=== PATIENT | female | born 1960 | race Caucasian/White ===

== ENCOUNTER → 2020-07-29 10:09 | Outpatient (BNVA) | payer OTHER, SELFPAY | PROVIDERS: Visit Provider Nurse Practitioner | DX: I10 Essential (primary) hypertension (principal); N95.2 Postmenopausal atrophic vaginitis; Z12.39 Encounter for other screening for malignant neoplasm of breast; L08.9 Local infection of the skin and subcutaneous tissue, unspecified; E55.9 Vitamin D deficiency, unspecified | CPT/HCPCS: 80053; 80061; 81000; 82306; 82607; 84443; 85025 ==

== ENCOUNTER 2020-09-23 13:19 | Outpatient (CLI) | payer OTHER, SELFPAY ==
--- NOTE | 2020-09-23 13:30 | MM_ITS ---
WS: [id number] BILATERAL DIGITAL SCREENING MAMMOGRAPHY WITH CAD CLINICAL INFORMATION: Z12.39 - Encounter for other screening for malignant neop... HISTORY: Screening mammogram. No current complaints. COMPARISON: February 23, 2013 outside exam. 2009 and 2010. TECHNIQUE: Bilateral CC and MLO views. FINDINGS: The breasts are composed of heterogeneous fibroglandular density tissue, which can limit the detectio n of small underlying mass lesions. No suspicious mass, asymmetry, calcifications, or architectural d istortion. No evidence of malignancy. MM/[place] [id number] IMPRESSION: BI-RADS: 2-Benign FOLLOW UP: 1 Year Follow-up Recommend return to annual screening mammography.
== END 2020-09-23 13:20 | disposition home or self-care (01) ==
LOC: RADSHAW 13:26
PROVIDERS: PCP Nurse Practitioner; Visit Provider Nurse Practitioner
DX: Z12.31 Encounter for screening mammogram for malignant neoplasm of breast (principal)
CPT/HCPCS: 77067

== ENCOUNTER → 2021-01-17 10:03 | Outpatient (BNVA) | payer OTHER, SELFPAY | PROVIDERS: PCP Nurse Practitioner; Visit Provider Nurse Practitioner | DX: I10 Essential (primary) hypertension (principal) | CPT/HCPCS: 80053; 80061 ==

== ENCOUNTER → 2021-07-13 16:52 | Outpatient (BNVA) | payer OTHER, SELFPAY | PROVIDERS: PCP Nurse Practitioner; Visit Provider Nurse Practitioner | DX: I10 Essential (primary) hypertension (principal) | CPT/HCPCS: 80053; 80061; 84443 ==

== ENCOUNTER → 2021-08-25 10:37 | Outpatient (BNVA) | payer OTHER, SELFPAY | PROVIDERS: PCP Nurse Practitioner; Visit Provider Nurse Practitioner Family | DX: Z20.822 Contact with and (suspected) exposure to COVID-19 (principal) | CPT/HCPCS: 87635 ==

== ENCOUNTER → 2022-02-14 15:49 | Outpatient (BNVA) | payer OTHER, SELFPAY | PROVIDERS: PCP Nurse Practitioner; Visit Provider Nurse Practitioner | DX: I10 Essential (primary) hypertension (principal) | CPT/HCPCS: 80053; 81000 ==

== ENCOUNTER → 2022-02-21 08:47 | Outpatient (BNVA) | payer OTHER, SELFPAY | PROVIDERS: PCP Nurse Practitioner; Visit Provider Nurse Practitioner | DX: R73.09 Other abnormal glucose (principal); R73.9 Hyperglycemia, unspecified | CPT/HCPCS: 80048 ==

== ENCOUNTER 2022-03-10 11:14 | Emergency (ER) | payer OTHER, SELFPAY ==
[2022-03-10 11:24] VITALS: BP 137/85; PULSE 92; RESP 16; TEMP 36.3; O2SAT 99; BMI 29.2
--- NOTE | 2022-03-10 11:49 | XRR_ITS ---
PROCEDURE INFORMATION: Exam: XR Abdomen Exam date and time: 03/10/2022 12:19 PM Age: 61 years old Clinical indication: Abdominal pain. Diarrhea. TECHNIQUE: Imaging protocol: Radiologic exam of the abdomen. Views: Frontal supine view of the abdomen. 1 View. COMPARISON: No relevant prior studies available. FINDINGS: Gastrointestinal tract: Nonobstructive bowel gas pattern. Intraperitoneal space: No gross free intraperitoneal air. Bones/joints: No gross acute fracture. XR/XR KUB portable [id number] IMPRESSION: 1. Nonobstructive bowel gas pattern. 2. Consider CT to further assess if clinically warranted.
[2022-03-10 12:09] LABS: Basophils % 0.5 %; Eosinophils # 0.2 10^3/uL (0.0-0.8); Eosinophils % 2.5 %; Hematocrit 36.4 % (37.0-47.0); Hemoglobin 11.9 g/dL (11.5-15.3); Lymphocytes # 0.8 10^3/uL (0.8-4.8); Lymphocytes % 12.6 %; Mean Corpuscular HGB Conc 32.7 g/dL (30.0-36.0); Mean Corpuscular Hemoglobin 30.3 pg (28.0-34.0); Mean Corpuscular Volume 92.6 fl (81-99); Mean Platelet Volume 9.5 fL (7.4-10.4); Monocytes # 0.5 10^3/uL (0.2-0.9); Monocytes % 8.1 %; Neutrophils # 4.58 10^3/uL (1.8-7.7); Neutrophils % 76.1 %; Nucleated Red Blood Cells % 0 %; Platelet Count 251 10^3/cmm (130-400); Red Blood Count 3.93 10^6/uL (4.1-5.3); Red Cell Distribution Width 12.6 % (12.1-15.1)
[2022-03-10] MEDS: sodium chloride 0.9% 1,000 ML 999 ML IV (12:09)
--- NOTE | 2022-03-10 12:09 | ED_ITS ---
HPI - Nausea/Vomiting/Diarrhea General: Chief complaint: Nausea/Vomiting/Diarrhea Stated complaint: diarrhea x7 days, bloody stools Time Seen by Provider: 03/10/22 11:29 History of Present Illness: 61-year-old female presents with what she says is diarrhea for 7 days and then when she wiped she had just a little bit of blood on the paper. She has not complained any blood in her stool. Patient then also stated that she had been on clindamycin that she finished around February 18 or so that she also had diarrhea while she was on the clindamycin. She denies any abdominal pain she denies any nausea or vomiting. Denies any fevers chills or other systemic complaints. Associated nausea: No Associated symtoms: Reports dizziness; Denies chest pain, headache(s), nausea or palpitations Review of Systems Const: Denies: fever(s) or chills Card: Denies: chest pain or palpitations Resp: Denies: dyspnea or productive cough GI: Reports: diarrhea; Denies: abdominal pain, nausea or vomiting : Denies: flank pain or difficulty voiding Musc: Denies: neck pain or back pain Skin/Breast: Denies: rash Neuro: Reports: dizziness; Denies: headache(s) PFSH ED PFSH: Medical History Atrophic vaginitis Environmental and seasonal allergies Essential (primary) hypertension MVP (mitral valve prolapse) Surgical History History of hysterectomy Left cervix and ovaries Family History Grandmother Diabetes Cancer Great grandmother with breast cancer age 60 Family/Other Cancer Uncle with renal cancer Denies family history of Dementia Anesthesia complication Bleeding disorder Hypertension Stroke Social History Smoking and tobacco status: former smoker Second hand smoke exposure: No Smoking risk assessment/counseling performed?: No Alcohol intake: current Alcohol intake frequency: 0-2 Drinks per Day Desire information about alcohol rehabilitation?: No Counseling given: No Desire information about substance/drug rehabilitation?: No Counseling given: No Adopted: No Caregiver/support person: No Lives independently: Yes Household members: spouse Housing: House Marital status: Number of children: 0 service: No Current occupational status: employed Current occupation: Bank Pets and animals: Yes Current gender identity: Female Physical Exam Const: COMMON NORMALS: no acute distress, patient oriented x3 and alert HENMT: COMMON NORMALS: normocephalic, hearing grossly normal bilaterally and moist oral mucous membranes HEAD & SCALP: normocephalic Resp: COMMON NORMALS: normal respiratory effort, No retractions and No use of accessory muscles Cardio: COMMON NORMALS: regular rate and regular rhythm RATE: regular rate RHYTHM: regular rhythm GI: COMMON NORMALS: Soft to palpation and non-tender PALPATION: Yes Soft to palpation Extremity: COMMON NORMALS: normal to inspection, full ROM and capillary refill normal Neuro: COMMON NORMALS: patient oriented x3, no focal motor deficits and gait normal SENSORIUM/ORIENTATION: Yes alert Course Vital Signs: Vital signs: Vital Signs Temperature 97.4 F L 03/10/22 11:24 Pulse Rate 92 03/10/22 11:24 Respiratory Rate 16 03/10/22 11:24 Blood Pressure 137/85 03/10/22 11:24 Pulse Oximetry 99 03/10/22 11:24 Oxygen Delivery Me thod 03/10/22 11:24 MDM - Nausea/Vomiting/Diarrhea Medical Decision Making Patient with no loose stool while in the ER. Patient's labs were reviewed. Patient with a slight elevation of her CRP otherwise labs showed no significant abnormality. X-ray shows nonobstructive bowel gas pattern pattern. She has no tenderness on exam. Patient with likely a gastroenteritis. CT abdomen is really not indicated with no pain or abnormalities on her lab that are significant. I will start her on Cipro Flagyl and Lomotil since she reports a weeks worth of diarrhea. Patient stable and discharged home Lab Data 03/10/22 12:03 03/10/22 12:03 Radiology Impressions KUB X-Ray 03/10/22 11:49 IMPRESSION: 1. Nonobstructive bowel gas pattern. 2. Consider CT to further assess if clinically warranted. Laboratory Results WBC 6.0 10^3/uL (4.0-10.0) 03/10/22 12:03 RBC 3.93 10^6/uL (4.1-5.3) L 03/10/22 12:03 Hgb 11.9 g/dL (11.5-15.3) 03/10/22 12:03 Hct 36.4 % (37.0-47.0) L 03/10/22 12:03 MCV 92.6 fl (81-99) 03/10/22 12:03 MCH 30.3 pg (28.0-34.0) 03/10/22 12:03 MCHC 32.7 g/dL (30.0-36.0) 03/10/22 12:03 RDW 12.6 % (12.1-15.1) 03/10/22 12:03 Plt Count 251 10^3/cmm (130-400) 03/10/22 12:03 MPV 9.5 fL (7.4-10.4) 03/10/22 12:03 Neut % (Auto) 76.1 % 03/10/22 12:03 Lymph % (Auto) 12.6 % 03/10/22 12:03 Stan[place]aus % (Auto) 8.1 % 03/10/22 12:03 Eos % (Auto) 2.5 % 03/10/22 12:03 Baso % (Auto) 0.5 % 03/10/22 12:03 Neut # (Auto) 4.58 10^3/uL (1.8-7.7) 03/10/22 12:03 Lymph # (Auto) 0.8 10^3/uL (0.8-4.8) 03/10/22 12:03 Stan[place]aus # (Auto) 0.5 10^3/uL (0.2-0.9) 03/10/22 12:03 Eos # (Auto) 0.2 10^3/uL (0.0-0.8) 03/10/22 12:03 Baso # (Auto) 0.0 10^3/uL (0.0-0.1) 03/10/22 12:03 Nucleated RBC % (auto) 0 % 03/10/22 12:03 Nucleated RBCs # 0.0 /100WBC 03/10/22 12:03 Sodium 136 mmol/L (136-145) 03/10/22 12:03 Potassium 4.2 mmol/L (3.5-5.1) 03/10/22 12:03 Chloride 99 mmol/L (98-107) 03/10/22 12:03 Carbon Dioxide 25 mmol/L (22-29) 03/10/22 12:03 Anion Gap 16.2 (5-19) 03/10/22 12:03 BUN 8 mg/dL (6-20) 03/10/22 12:03 Creatinine 0.7 mg/dL (0.5-0.9) 03/10/22 12:03 GFR Calculation 85.6 mL/min (90-130) L 03/10/22 12:03 Glucose 102 mg/dL (65-115) 03/10/22 12:03 Calculated Osmolality 281 mOsm/kg (285-295) L 03/10/22 12:03 Calcium 9.4 mg/dL (8.5-10.5) 03/10/22 12:03 Magnesium 1.9 mg/dL (1.7-2.3) 03/10/22 12:03 Total Bilirubin 0.3 mg/dL (0.15-1.2) 03/10/22 12:03 AST 23 U/L (0-32) 03/10/22 12:03 ALT 28 U/L (0-33) 03/10/22 12:03 Alkaline Phosphatase 84 U/L (35-105) 03/10/22 12:03 C-Reactive Protein 27.6 mg/L (0.0-4.9) H 03/10/22 12:03 Total Protein 7.2 g/dL (6.6-8.7) 03/10/22 12:03 Albumin 4.4 g/dL (3.5-5.2) 03/10/22 12:03 Globulin 2.8 g/dL (1.3-4.6) 03/10/22 12:03 Procalcitonin 0.04 ng/mL (0-0.5) 03/10/22 12:03 Influenza Type A Ag negative (Negative) 03/10/22 12:03 Influenza Type B Ag negative (Negative) 03/10/22 12:03 SARS-CoV-2 Ag (Rapid) negative (Negative) 03/10/22 12:03 Discharge Plan Discharge Patient Disposition: Home Clinical Impression: Acute infective gastroenteritis Condition: Stable Prescriptions: New ciprofloxacin HCl [Cipro] 500 mg tablet 500 mg PO BID Qty: 10 0RF metronidazole 500 mg tablet 500 mg PO Q12H Qty: 10 0RF Lomotil 2.5-0.025 mg tablet 1 tab PO Q12H PRN (Reason: diarrhea) Qty: 10 0RF No Action clindamycin HCl 300 mg capsule PO krill oil 500 mg capsule 500 mg PO DAILY omega-3 fatty acids Capsule 1,000 mg PO DAILY amlodipine-benazepril 2.5-10 mg capsule 1 cap PO DAILY Qty: 90 1RF spironolactone 25 mg tablet 25 mg PO BID Qty: 180 1RF Discharge Orders: Discharge ED (Routine); Ordered 03/10/22 Ordered By: Attila Hanson Referrals: Rakesh Torres, SENIOR DEVELOPER-C [Primary Care Provider] - Discharge Diet: Usual diet Discharge Activity: Resume usual activity Patient Instructions: Opioid Safety, Pain Management, Gastroenteritis (ED), Infectious Colitis (ED) Activity Restrictions/Additional Instructions: Please follow-up with your primary care provider in the middle of next week to recheck your symptoms and further outpatient evaluation as needed Coding Level of Care Code ED Line Production Cook for Siri Fwd Exam Detailed
[2022-03-10 12:15] VITALS: BP 126/76; PULSE 80; O2SAT 100
[2022-03-10 12:36] LABS: Alanine Aminotransferase 28 U/L (0-33); Albumin Level 4.4 g/dL (3.5-5.2); Alkaline Phosphatase 84 U/L (35-105); Anion Gap 16.2 (5-19); Aspartate Amino Transferase 23 U/L (0-32); Blood Urea Nitrogen 8 mg/dL (6-20); C Reactive Protein 27.6 mg/L (0.0-4.9); Calcium 9.4 mg/dL (8.5-10.5); Carbon Dioxide 25 mmol/L (22-29); Chloride 99 mmol/L (98-107); Globulin 2.8 g/dL (1.3-4.6); Glomerular Filtration Rate 85.6 mL/min (90-130); Glucose 102 mg/dL (65-115); Magnesium 1.9 mg/dL (1.7-2.3); Osmolality Calculated 281 mOsm/kg (285-295); Potassium 4.2 mmol/L (3.5-5.1); Sodium 136 mmol/L (136-145); Total Bilirubin 0.3 mg/dL (0.15-1.2); Total Protein 7.2 g/dL (6.6-8.7)
[2022-03-10 12:43] LABS: Procalcitonin 0.04 ng/mL (0-0.5)
[2022-03-10 13:28] VITALS: BP 122/72; PULSE 84; RESP 14; O2SAT 96
[2022-03-10 13:38] LABS: Influenza A by IFA negative (Negative); Influenza B by IFA negative (Negative)
[2022-03-10 13:39] LABS: SARS Covid-2 Antigen negative (Negative)
[2022-03-10 14:15] VITALS: BP 134/75; PULSE 76; RESP 14; O2SAT 99
== END 2022-03-10 14:15 | disposition home or self-care (01) ==
PROVIDERS: Emergency Provider Student in an Organized Health Care Education/Training Program; PCP Nurse Practitioner
DX: A09 Infectious gastroenteritis and colitis, unspecified (principal); Z20.822 Contact with and (suspected) exposure to COVID-19; I10 Essential (primary) hypertension; Z87.891 Personal history of nicotine dependence
CPT/HCPCS: 74018; 80053; 83735; 84145; 85025; 86140; 87426; 87804; 99284; J7030

== ENCOUNTER → 2022-03-12 09:57 | Outpatient (BNVA) | payer OTHER, SELFPAY | PROVIDERS: PCP Nurse Practitioner; Visit Provider Nurse Practitioner | DX: R19.7 Diarrhea, unspecified (principal) | CPT/HCPCS: 87506 ==

== ENCOUNTER → 2022-03-22 16:04 | Outpatient (BNVA) | payer OTHER, SELFPAY | PROVIDERS: PCP Nurse Practitioner; Visit Provider Nurse Practitioner | DX: K62.5 Hemorrhage of anus and rectum (principal); R10.32 Left lower quadrant pain | CPT/HCPCS: 85025 ==

== ENCOUNTER → 2022-03-23 10:48 | Outpatient (BNVA) | payer OTHER, SELFPAY | PROVIDERS: PCP Nurse Practitioner; Visit Provider Nurse Practitioner | DX: R10.32 Left lower quadrant pain (principal); R19.7 Diarrhea, unspecified | CPT/HCPCS: 83630; 87493; 87506 ==

== ENCOUNTER 2022-04-13 12:20 | Outpatient (CLI) | payer OTHER, SELFPAY ==
[2022-04-13] MEDS: iohexol 350 mg/mL 500 mL Btl (per mL) PO (13:33)
--- NOTE | 2022-04-13 14:00 | CT_ITS ---
WS: [id number] CT ABDOMEN AND PELVIS NONCONTRAST HISTORY: R10.32 - Left lower quadrant pain, diarrhea for 2 months. TECHNIQUE: Imaging performed through the abdomen and pelvis. Coronal and sagittal reformats are submi tted. All CT scans at [facility] use at least one of these dose optimization techniques: auto mated exposure control; mA and/or kV adjustment per patient size (includes targeted exams where dose is matched to clinical indication); or iterative reconstruction. DLP: 591.36 mGy.cm COMPARISON: None available. Lower thorax: Lung bases are clear. Visualized heart is normal. No hiatal hernia. Liver: Normal size liver. Focal hepatic steatosis along the falciform ligament. Gallbladder: Normal gallbladder. Pancreas: Normal size and attenuation. Normal pancreatic duct. No pancreatitis or mass. Spleen: Normal. Adrenal glands: Normal. No mass. Right kidney: Normal size kidney with no mass or hydronephrosis. Left kidney: Normal size kidney with no mass or hydronephrosis. Aorta: Normal abdominal aorta, no aneurysm or atherosclerosis. No free fluid, intraperitoneal air or significant lymphadenopathy. GI tract: Negative stomach and small bowel. Normal appendix. There are several scattered diverticula throughout the distal colon. No evidence for acute diverticulitis. Abdominal wall: Negative. No hernia. Pelvis: Negative urinary bladder. No free fluid. Osseous structures: Unremarkable. CT/CT abdomen pelvis wo con [id number] IMPRESSION: 1. Normal appendix. 2. Distal colon diverticular disease. No evidence for acute diverticulitis. No GI tract obstruction.
== END 2022-04-13 12:21 | disposition home or self-care (01) ==
LOC: RAD 12:21
PROVIDERS: PCP Nurse Practitioner; Visit Provider Nurse Practitioner
DX: R10.32 Left lower quadrant pain (principal); K57.30 Diverticulosis of large intestine without perforation or abscess without bleeding
CPT/HCPCS: 74176; 83630; 87493; 87506; Q9967

== ENCOUNTER → 2022-10-09 10:56 | Outpatient (BNVA) | payer OTHER, SELFPAY | PROVIDERS: PCP Nurse Practitioner; Visit Provider Nurse Practitioner | DX: I10 Essential (primary) hypertension (principal); I34.1 Nonrheumatic mitral (valve) prolapse | CPT/HCPCS: 80053; 80061 ==

== ENCOUNTER → 2023-04-10 15:03 | Outpatient (BNVA) | payer OTHER, SELFPAY | PROVIDERS: PCP Nurse Practitioner; Visit Provider Nurse Practitioner | DX: I10 Essential (primary) hypertension (principal); I34.1 Nonrheumatic mitral (valve) prolapse; Z79.899 Other long term (current) drug therapy | CPT/HCPCS: 80053; 80061; 82607; 84443; 85025 ==

== ENCOUNTER 2023-05-07 14:31 | Outpatient (CLI) | payer OTHER, SELFPAY ==
--- NOTE | 2023-05-07 14:30 | MM_ITS ---
WS: [id number] BILATERAL 3D TOMOSYNTHESIS DIGITAL SCREENING MAMMOGRAPHY WITH CAD CLINICAL INFORMATION: Z12.31 - Encounter for screening mammogram for malignant ... HISTORY: Screening mammogram. No current complaints. COMPARISON: 2020 TECHNIQUE: Bilateral CC and MLO views. FINDINGS: The breasts are composed of heterogeneous fibroglandular density tissue, which can limit the detectio n of small underlying mass lesions. No suspicious mass, asymmetry, calcifications, or architectural d istortion. No evidence of malignancy. Incidental benign punctate calcifications. IMPRESSION: MM/[place] [id number] BI-RADS: 2-Benign FOLLOW UP: 1 Year Follow-up Recommend return to annual screening mammography.
== END 2023-05-07 14:32 | disposition home or self-care (01) ==
LOC: MOBLMAM 14:38
PROVIDERS: PCP Nurse Practitioner; Visit Provider Nurse Practitioner
DX: Z12.31 Encounter for screening mammogram for malignant neoplasm of breast (principal)
CPT/HCPCS: 77063; 77067

== ENCOUNTER → 2024-02-17 10:50 | Outpatient (BNVA) | payer OTHER, SELFPAY | PROVIDERS: PCP Nurse Practitioner; Visit Provider Nurse Practitioner | DX: I10 Essential (primary) hypertension (principal) | CPT/HCPCS: 80053; 85025 ==

== ENCOUNTER → 2024-05-25 08:37 | Outpatient (BNVA) | payer OTHER, SELFPAY | PROVIDERS: PCP Nurse Practitioner; Visit Provider Nurse Practitioner | DX: R20.2 Paresthesia of skin (principal); M47.814 Spondylosis without myelopathy or radiculopathy, thoracic region; M41.86 Other forms of scoliosis, lumbar region; M25.78 Osteophyte, vertebrae; M51.370 Other intervertebral disc degeneration, lumbosacral region with discogenic back pain only; M50.320 Other cervical disc degeneration, mid-cervical region, unspecified level; M47.896 Other spondylosis, lumbar region; M48.02 Spinal stenosis, cervical region; M47.892 Other spondylosis, cervical region; M48.061 Spinal stenosis, lumbar region without neurogenic claudication | CPT/HCPCS: 72040; 72072; 72100 ==

== ENCOUNTER 2024-06-02 09:18 | Outpatient (CLI) | payer OTHER, SELFPAY ==
--- NOTE | 2024-06-02 09:20 | MM_ITS ---
WS: [id number] VIEWS: MLO and CC views both breasts. 3D digital tomosynthesis is also included in this exam. Comparison made with prior exam of 04/01/2009, 01/22/2011, 02/23/2013, 09/23/2020, 05/07/2023.. Findings: The breasts are heterogeneously dense, which may obscure small masses. No mass, tumor calcification or architectural distortion noted. MM/MM scr BI tomosynthesis [id number] Impression: BI-RADS: 2 - Benign FOLLOW-UP: 1 Year Follow-up This mammogram was also analyzed by the Computer Aided Detection System [employer]2 [employer]acy [employer].
== END 2024-06-02 09:19 | disposition home or self-care (01) ==
LOC: MOBLMAM 09:19
PROVIDERS: PCP Nurse Practitioner; Visit Provider Nurse Practitioner
DX: Z12.31 Encounter for screening mammogram for malignant neoplasm of breast (principal); R92.333 Mammographic heterogeneous density, bilateral breasts
CPT/HCPCS: 77063; 77067

== ENCOUNTER 2024-07-06 11:33 | Emergency (ER) | payer OTHER, SELFPAY ==
--- NOTE | 2024-07-06 11:37 | CT_ITS ---
WS: [id number] CT FACIAL BONES HISTORY: injury TECHNIQUE: Images obtained from the supraorbital location through the mandible. Soft tissue and bone windows are reviewed. Coronal and sagittal reformats have also been submitted. DLP: 1852.[address] scans at [facility] use at least one of these dose optimization techniques: automated exposure control; mA and/or kV adjustment per patient size (includes targeted exams where dose is matched to clinical indication); or iterative reconstruction. COMPARISON: None available. No facial bone fracture identified. Nasal bones and zygomatic arches are intact. No mandibular or maxillary fracture. History of loose tooth. No corresponding abnormality is noted within the mandible or maxilla. Lamina papyracea are normal. Upper cervical spine is normal. Craniocervical junction is normally aligned. Very slight mucoperiosteal thickening in the maxillary sinuses. No air-fluid levels. There is a single focus of air along the anterior maxilla just deep to the philtrum. Suspect there may be a soft tissue laceration. CT/CT facial bones wo con* [id number] IMPRESSION: 1. No facial bone fractures are identified. 2. No mandibular or maxillary fracture. No displaced tooth is identified. 3. Tiny amount of air deep to the philtrum. Suspect there could be a small sof t tissue laceration.
--- NOTE | 2024-07-06 11:37 | CT_ITS ---
WS: [id number] CT CHEST, ABDOMEN AND PELVIS WITH CONTRAST HISTORY: fall TECHNIQUE: Contiguous 5 mm axial imaging performed through the chest, abdomen and pelvis with IV contrast, oral contrast has not been provided. Coronal and sagittal reformats chest. Coronal and sagittal reformats through the abdomen and pelvis. All CT scans at [facility] use at least one of these dose optimization techniques: automated exposure control; mA and/or kV adjustment per patient size (includes targeted exams where dose is matched to clinical indication); or iterative reconstruction. CONTRAST: Omnipaque 350; 100 mL IV. DLP: 840.67 mGy.cm COMPARISON: 04/13/2022 CT abdomen and pelvis Chest CT: Small to moderate RIGHT pneumothorax. There is no tension or shift of the midline structures. Mild dependent changes at the lung bases. No pulmonary contusion or laceration. Nondisplaced fracture involving the RIGHT first rib. No pericardial or pleural effusions. Heart is normal. No adenopathy. No aortic injury. Normal size pulmonary artery. No thoracic spine fracture. Clavicles and thoracic spine transverse processes appear intact. No additional rib fractures. T3 spinous process fracture, nondisplaced. Abdomen CT: Liver and spleen are intact. No lacerations. Normal gallbladder and adrenal glands. Normal pancreas. No renal obstruction. No mesenteric injury. No GI tract obstruction. No ascites or hemoperitoneum. Pelvic CT: Well-distended urinary bladder. Tiny amount of fluid in the LEFT pelvis may be associated with the ovary. Urinary bladder is negative. Normal lumbar alignment. No lumbar fracture. No sacral fracture. No pelvic fracture. CT/CT chest abdpel w/*[id number] IMPRESSION: 1. Small to moderate RIGHT pneumothorax. No evidence for midline shift or tens ion. 2. No pulmonary contusion or laceration. 3. RIGHT upper thorax and neck subcutaneous emphysema. 4. Nondisplaced RIGHT first rib fracture. Possible nondisplaced fracture secon d rib. Additional thinner cuts through the upper thorax did not identify a seco nd rib fracture. Contiguous air through the intercostal space between the first and second ribs is probably the site of the pneumothorax. 5. No clavicle fracture. 6. Nondisplaced T3 spinous process fracture. 7. Poorly visualized C7 vertebral body transverse process. MRI may be necessar y to evaluate for marrow edema. 8. No abdominal visceral organ injury. No mesenteric injury. Notified Mariya Moyer MD at 07/06/2024 1:13 PM.
--- NOTE | 2024-07-06 11:37 | CT_ITS ---
WS: [id number] CT HEAD NONCONTRAST HISTORY: injury TECHNIQUE: Contiguous axial imaging performed through the brain. Bone and soft tissue windows. Sagittal and coronal reformats reviewed. All CT scans at [facility] use at least one of these dose optimization techniques: automated exposure control; mA and/or kV adjustment per patient size (includes targeted exams where dose is matched to clinical indication); or iterative reconstruction. DLP: 1852.98 mGy.cm COMPARISON: None available. No acute intracranial hemorrhage, midline shift or mass effect. No atrophy or prior infarcts or herniation. No significant atrophy or prior infarct. Ventricles: Normal size with no hydrocephalus. No inferior displacement the cerebellar tonsils. Paranasal sinuses: Mild mucoperiosteal thickening in the floor of the RIGHT maxillary sinus. Mastoid air cells: Well pneumatized. Calvarium and scalp: No skull fracture. Soft tissue laceration with air noted towards the skull vertex just to the RIGHT of midline. No fracture. CT/CT head wo con* [id number] IMPRESSION: 1. No acute intracranial hemorrhage or edema. 2. No skull fracture. 3. High RIGHT parietal scalp laceration with no underlying fracture.
--- NOTE | 2024-07-06 11:37 | CT_ITS ---
WS: [id number] CT CERVICAL SPINE HISTORY: injury TECHNIQUE: Contiguous 2.0 mm axial imaging performed through the entire cervical spine. Sagittal and coronal reformats also performed. All CT scans at [facility] use at least one of these dose optimization techniques: automated exposure control; mA and/or kV adjustment per patient size (includes targeted exams where dose is matched to clinical indication); or iterative reconstruction. DLP: 1852.98 mGy.cm COMPARISON: None available. Posterior cervical alignment is normal. Moderate degenerative disc disease and osteophytes at C6-7 and C7-T1. Lateral masses of C1 and C2 are aligned. Craniocervical junction is normal. Mild bilateral facet joint arthropathy. Subcutaneous air is noted along the RIGHT neck beginning at the C3 level and infiltrating through the soft tissues to the upper chest. Artifact from patient's shoulders the upper thorax. No cervical fracture identified. The upper thoracic vertebral bodies will be reevaluated on the chest CT. Suspect there may be a rib fracture on the RIGHT. Lung apices were not included. Minimal asymmetry of the RIGHT T1-T2 facet joint. As a result significant injury to the RIGHT neck ligamentous injury should be considered. This is minimal but asymmetric to the LEFT. Consider additional imaging by MRI. CT/CT cervical spin wo con* [id number] IMPRESSION: 1. No definite cervical spine fracture is identified. 2. Subcutaneous air along the RIGHT neck. Suspected pneumothorax. Chest CT is also being performed. 3. Poor visualization of the lower cervical vertebrae and the upper thoracic v ertebrae. Will be reevaluated on the chest CT. 4. Very minimal asymmetry of the T1-T2 RIGHT facet joint. MRI evaluation may b e necessary to evaluate for ligamentous injury. This is only a very subtle find ing and may be normal for this patient.
[2024-07-06 11:38] VITALS: BP 129/73; PULSE 75; RESP 16; TEMP 36.7; O2SAT 96; BMI 28.6
--- NOTE | 2024-07-06 11:40 | ED_ITS ---
HPI - Fall 2 General: Chief Complaint: Trauma Stated Complaint: stairs fall - head lac Time Seen by Provider: 07/06/24 11:34 Source: patient and EMS Mode of arrival: EMS Limitations: no limitations History of Present Illness: 63-year-old female who states that she f ell down a flight of stairs just prior to arrival. She did hit her head has a laceration to the crown of her head currently in a c-collar she complains of facial pain along with neck pain and chest pain. Unknown if she had a loss of consciousness they did give her 200 mcg of fentanyl and route. Denies any extremity pain Associated symptoms-after fall: Reports abdominal pain, chest pain, headache(s) and neck pain Related Data Home Medications ?Medication ?Instructions ?Recorded ?Confirmed krill oil 500 mg capsule 500 mg PO DAILY 02/14/2202/18 ascorbic acid (vitamin C) 500 mg 500 mg PO DAILY maint ain good 07/17/22 07/06/24 tablet (Vitamin C) health cholecalciferol (vitamin D3) 50 50 mcg PO DAILY mainta in good 07/17/22 07/06/24 mcg (2,000 unit) capsule (Vitamin health D3) ighgjlso-sccl-uvla 8 mg-folic 400 1 tab PO DAILY maint ain [facility] 07/17/22 07/06/24 mcg-K 50 mcg-lutein 300 mcg tablet (Centrum Silver Women) fexofenadine 180 mg tablet 180 mg PO Q24H 01/01/2302/18 ([facility] Allergy) Previous Rx's ?Medication ?Instructions ?Recorded Saccharomyces boulardii 250 1 cap PO .2 time day #60 c aps 04/23/22 mg-inulin 300 mg capsule (FlorastorSelect Gut Boost) spironolactone 25 mg tablet 25 mg PO DAILY #90 tabs amlodipine 5 mg-benazepril 10 mg 1 cap PO DAILY #90 ca ps 04/28/24 capsule Allergies Allergy/AdvReac Type Severity Reaction Status Date / Time hydrochlorothiazide Allergy Severe head pain Verified 04/28/24 11:19 acetaminophen (From Tylenol) Allergy Mild nausea Verified 04/28/24 11:19 Review of Systems 2 Const: Denies: fever(s), chills, body aches or change in appetite ENMT: Denies: throat pain or dental pain Card: Reports: chest pain Resp: Denies: dyspnea GI: Reports: abdominal pain; Denies: nausea, vomiting or diarrhea : Denies: dysuria Musc: Reports: neck pain and back pain Skin/Breast: Denies: rash Neuro: Reports: headache(s) PFSH ED 2 PFSH: Medical History MVP (mitral valve prolapse) Atrophic vaginitis Essential (primary) hypertension Environmental and seasonal allergies Surgical History History of hysterectomy Left cervix and ovaries Family History Grandmother Diabetes Cancer Great grandmother with breast cancer age 60 Family/Other Cancer Uncle with renal cancer Denies family history of Dementia Anesthesia complication Bleeding disorder Hypertension Stroke Social History Smoking and tobacco/nicotine status: former use of tobacco/nicotine Second hand smoke exposure: No Alcohol intake: former Substance/Drug Use: unknown Adopted: No Caregiver/support person: No Lives independently: Yes Household members: spouse Housing: House Marital status: Number of children: 0 service: No Current occupational status: employed Current occupation: [employer] Pets and animals: Yes Do you think of yourself as: Straight/Heterosexual Current gender identity: Female Physical Exam 2 Const: COMMON NORMALS: no acute distress, patient oriented x3 and healthy appearing HENMT: COMMON NORMALS: normocephalic HEAD & SCALP: normocephalic OTHER: 3cm scalp laceration Eye: COMMON NORMALS: conjunctivae normal CONJUNCTIVA: Yes conjunctivae normal Neck/C-Spine: OTHER: in c collar Chest: COMMONS NORMALS: normal inspection of the chest Resp: COMMON NORMALS: normal respiratory effort, No retractions, No use of accessory muscles and clear to auscultation bilaterally AUSCULTATION: clear to auscultation bilaterally Cardio: COMMON NORMALS: regular rate, regular rhythm and No murmurs present (Cardio) RATE: regular rate RHYTHM: regular rhythm GI: COMMON NORMALS: Normal to inspection, nondistended, normoactive bowel sounds present, Soft to palpation, non-tender and no masses PALPATION: Yes Soft to palpation Extremity: COMMON NORMALS: normal to inspection and full ROM Neuro: COMMON NORMALS: patient oriented x3, moves all extremities and no focal motor deficits Psych: COMMON NORMALS: mental status grossly normal, Normal thought process present and cooperative THOUGHT PROCESS: Normal thought process present Skin: COMMON NORMALS: no rashes or lesions noted and no wounds GENERAL SKIN EXAM: no rashes or lesions noted Course 2 Vital Signs: Vital signs: Vital Signs Temperature 98.1 F 07/06/24 11:38 Pulse Rate 70 07/06/24 13:30 Respiratory Rate 16 07/06/24 11:38 Blood Pressure 132/68 07/06/24 13:30 Pulse Oximetry 100 07/06/24 13:30 Oxygen Delivery Me thod Non-Rebreather 07/06/24 13:30 Oxygen Flow Rate 15 07/06/24 13:30 MDM - Fall Medical Decision Making Patient presents here after fall down the stairs she does have multiple rib fractures small roughly 20% pneumothorax she is not requiring any oxygen here she is 100% on room air she also has a T-spine fracture I spoke to [facility] will transfer there for trauma higher level of care pneumo small and does not requiring oxygen did not place a chest tube at this time. Medical Records I reviewed the patient's medical records. Lab Data I reviewed the patient's lab results. 07/06/24 11:53 07/06/24 11:53 Radiology Impressions Cervical Spine CT 07/06/24 11:37 IMPRESSION: 1. No definite cervical spine fracture is identified. 2. Subcutaneous air along the RIGHT neck. Suspected pneumothorax. Chest CT is also being performed. 3. Poor visualization of the lower cervical vertebrae and the upper thoracic vertebrae. Will be reevaluated on the chest CT. 4. Very minimal asymmetry of the T1-T2 RIGHT facet joint. MRI evaluation may be necessary to evaluate for ligamentous injury. This is only a very subtle finding and may be normal for this patient. Chest/Abdomen/Pelvis CT 07/06/24 11:37 IMPRESSION: 1. Small to moderate RIGHT pneumothorax. No evidence for midline shift or tension. 2. No pulmonary contusion or laceration. 3. RIGHT upper thorax and neck subcutaneous emphysema. 4. Nondisplaced RIGHT first rib fracture. Possible nondisplaced fracture second rib. Additional thinner cuts through the upper thorax did not identify a second rib fracture. Contiguous air through the intercostal space between the first and second ribs is probably the site of the pneumothorax. 5. No clavicle fracture. 6. Nondisplaced T3 spinous process fracture. 7. Poorly visualized C7 vertebral body transverse process. MRI may be necessary to evaluate for marrow edema. 8. No abdominal visceral organ injury. No mesenteric injury. Notified Mariya Moyer MD at 07/06/2024 1:[address] 07/06/24 11:37 IMPRESSION: 1. No facial bone fractures are identified. 2. No mandibular or maxillary fracture. No displaced tooth is identified. 3. Tiny amount of air deep to the philtrum. Suspect there could be a small soft tissue laceration. Head CT 07/06/24 11:37 IMPRESSION: 1. No acute intracranial hemorrhage or edema. 2. No skull fracture. 3. High RIGHT parietal scalp laceration with no underlying fracture. Forearm X-Ray 07/06/24 11:56 IMPRESSION: 1. No fracture identified. Laboratory Results WBC 8.55 10^3/uL (3.29-11.43) 07/06/24 11:53 RBC 4.12 10^6/uL (3.85-5.65) 07/06/24 11:53 Hgb 12.10 g/dL (11.27-16.99) 07/06/24 11:53 Hct 38.0 % (36-47) 07/06/24 11:53 MCV 92.2 fl (85-98) 07/06/24 11:53 MCH 29.4 pg (27-33) 07/06/24 11:53 MCHC 31.8 g/dL (30-55) 07/06/24 11:53 RDW 13.2 % (12.1-15.1) 07/06/24 11:53 Plt Count 234 10^3/cmm (157-399) 07/06/24 11:53 MPV 9.6 fL (7.4-10.4) 07/06/24 11:53 Neut % (Auto) 77.2 % 07/06/24 11:53 Lymph % (Auto) 15.9 % 07/06/24 11:53 [place] % (Auto) 4.2 % 07/06/24 11:53 Eos % (Auto) 1.6 % 07/06/24 11:53 Baso % (Auto) 0.4 % 07/06/24 11:53 Neut # (Auto) 6.60 10^3/uL (1.8-7.7) 07/06/24 11:53 Lymph # (Auto) 1.4 10^3/uL (0.8-4.8) 07/06/24 11:53 [place] # (Auto) 0.4 10^3/uL (0.2-0.9) 07/06/24 11:53 Eos # (Auto) 0.1 10^3/uL (0.0-0.8) 07/06/24 11:53 Baso # (Auto) 0.0 10^3/uL (0.0-0.1) 07/06/24 11:53 Nucleated RBC % (auto) 0 % 07/06/24 11:53 Nucleated RBCs # 0.0 /100WBC 07/06/24 11:53 Sodium 135 mmol/L (136-145) L 07/06/24 11:53 Potassium 3.9 mmol/L (3.5-5.1) 07/06/24 11:53 Chloride 99 mmol/L (98-107) 07/06/24 11:53 Carbon Dioxide 23 mmol/L (22-29) 07/06/24 11:53 Anion Gap 16.9 (5-19) 07/06/24 11:53 BUN 17 mg/dL (8-23) 07/06/24 11:53 Creatinine 0.8 mg/dL (0.5-0.9) 07/06/24 11:53 GFR Calculation 72.9 mL/min (90-130) L 07/06/24 11:53 Glucose 146 mg/dL (65-115) H 07/06/24 11:53 Calculated Osmolality 284 mOsm/kg (285-295) L 07/06/24 11:53 Calcium 9.3 mg/dL (8.5-10.5) 07/06/24 11:53 All radiology interpretation(s) finalized by discharge Discharge Plan Discharge Patient Disposition: Xfer Short-Term Hosp Clinical Impression: Fall, Pneumothorax Closed rib fracture Qualifiers: Encounter type: initial encounter Rib fracture type: multiple ribs Laterality: right Qualified Code(s): S22.41XA - Multiple fractures of ribs, right side, initial encounter for closed fracture Condition: Stable Referrals: Rakesh Torres, [facility] [Primary Care Provider, Family Practice] Print Language: Irish Coding Level of Care Code ED Head Librarian for Siri Causey
--- NOTE | 2024-07-06 11:56 | XR_ITS ---
WS: [id number] Exam: XR forearm RT 2V [id number] Date/Time of Exam: 07/06/2024 11:57 AM Reason For Exam: injury No fracture of the forearm. The joints are preserved. Normal soft tissues. XR/XR forearm RT 2V [id number] IMPRESSION: 1. No fracture identified.
[2024-07-06 11:58] LABS: Basophils % 0.4 %; Eosinophils # 0.1 10^3/uL (0.0-0.8); Eosinophils % 1.6 %; Lymphocytes # 1.4 10^3/uL (0.8-4.8); Lymphocytes % 15.9 %; Mean Corpuscular HGB Conc 31.8 g/dL (30-55); Mean Corpuscular Hemoglobin 29.4 pg (27-33); Mean Corpuscular Volume 92.2 fl (85-98); Mean Platelet Volume 9.6 fL (7.4-10.4); Monocytes # 0.4 10^3/uL (0.2-0.9); Monocytes % 4.2 %; Neutrophils % 77.2 %; Nucleated Red Blood Cells % 0 %; Platelet Count 234 10^3/cmm (157-399); Red Blood Count 4.12 10^6/uL (3.85-5.65); Red Cell Distribution Width 13.2 % (12.1-15.1); White Blood Count 8.55 10^3/uL (3.29-11.43)
[2024-07-06 12:17] LABS: Anion Gap 16.9 (5-19); Blood Urea Nitrogen 17 mg/dL (8-23); Calcium 9.3 mg/dL (8.5-10.5); Carbon Dioxide 23 mmol/L (22-29); Chloride 99 mmol/L (98-107); Creatinine Clr Calc Pharmacy 81.7957; Glomerular Filtration Rate 72.9 mL/min (90-130); Glucose 146 mg/dL (65-115); Osmolality Calculated 284 mOsm/kg (285-295); Potassium 3.9 mmol/L (3.5-5.1); Sodium 135 mmol/L (136-145)
[2024-07-06] MEDS: iohexol 350 mg/mL 500 mL Btl (per mL) IV (12:42)
--- NOTE | 2024-07-06 13:26 | PC.NURSE ---
PT PLACED ON 15L NON-REBREATHER PER PROVIDERS ORDER.
[2024-07-06 13:30] VITALS: BP 132/68; PULSE 70; O2SAT 100
--- NOTE | 2024-07-06 13:46 | PC.NURSE ---
REPORT CALLED TO FERNANDA Omalley RN AT [facility]. ACCEPTING NURSE VERBALIZED UNDERSTANDING AND DENIED ANY FURTHER QUESTIONS. TRANSFER FORM FILLED OUT AND GIVEN TO [employer] TO SET UP TRANSPORTATION.
--- NOTE | 2024-07-06 13:51 | XR_ITS ---
WS: [id number] Exam: XR chest 1V portable [id number] Date/Time of Exam: 07/06/2024 1:51 PM Reason For Exam: trauma No prior exams. Approximately 20% pneumothorax of the upper lobe of the RIGHT lung noted. Subcu emphysema along the base of the neck on the RIGHT. The LEFT lung is clear and fully expanded. Normal cardiomediastinal silhouette. No pleural effusion. No obvious bony injury. Recommendations: Contrast CT scan of the chest might be considered for more detailed evaluation. Results discussed by phone with the attending ER physician Dr. Moyer at 2:15 p.m. 07/06/2024. XR/XR chest 1V portable [id number] IMPRESSION: 1. Approximately 20% pneumothorax of the upper lobe of the RIGHT lung. Subcutan eous emphysema of along the base of the neck on the right.
--- NOTE | 2024-07-06 13:58 | DCPLANNER ---
Attempted to call [facility] to transport transfer to [facility]. Straight to Breanna/Agatha @ [phone].
[2024-07-06 14:30] VITALS: BP 137/78; PULSE 80; O2SAT 100
[2024-07-06 14:37] VITALS: RESP 18
[2024-07-06] MEDS: morphine 4 mg/mL SDV 1 mL IVP (14:37)
[2024-07-06 14:59] VITALS: BP 123/73; PULSE 83; O2SAT 100
== END 2024-07-06 15:10 | disposition short-term general hospital (02) ==
PROVIDERS: Emergency Provider Emergency Medicine; PCP Nurse Practitioner
DX: J93.9 Pneumothorax, unspecified (principal); S22.41XA Multiple fractures of ribs, right side, initial encounter for closed fracture; Z87.891 Personal history of nicotine dependence; I10 Essential (primary) hypertension; W10.9XXA Fall (on) (from) unspecified stairs and steps, initial encounter; R51.9 Headache, unspecified; M54.2 Cervicalgia; R07.9 Chest pain, unspecified
CPT/HCPCS: 36415; 70450; 70486; 71045; 71260; 72125; 73090; 74177; 80048; 85025; 96374; 99285; J2270

== ENCOUNTER → 2024-07-21 16:14 | Outpatient (BNVA) | payer OTHER, SELFPAY | PROVIDERS: PCP Nurse Practitioner; Visit Provider Nurse Practitioner | DX: I10 Essential (primary) hypertension (principal); R05.9 Cough, unspecified | CPT/HCPCS: 71046 ==

== ENCOUNTER → 2024-08-18 09:53 | Outpatient (BNVA) | payer OTHER, SELFPAY | PROVIDERS: PCP Nurse Practitioner; Visit Provider Nurse Practitioner | DX: M79.645 Pain in left finger(s) (principal); M19.042 Primary osteoarthritis, left hand | CPT/HCPCS: 73130 ==

== ENCOUNTER 2024-08-25 05:00 | Outpatient (RCR) | payer OTHER, SELFPAY | END 2024-09-24 23:59 | disposition home or self-care (01) | LOC: APT 05:00 | PROVIDERS: Visit Provider Orthopaedic Surgery | DX: M54.2 Cervicalgia (principal); G89.29 Other chronic pain | CPT/HCPCS: 97161 ==

== ENCOUNTER → 2024-09-03 14:35 | Outpatient (BNVA) | payer OTHER, SELFPAY | PROVIDERS: PCP Nurse Practitioner; Visit Provider Orthopaedic Surgery | DX: M54.2 Cervicalgia (principal); M54.9 Dorsalgia, unspecified | CPT/HCPCS: 72040; 72072 ==

== ENCOUNTER → 2024-09-15 13:29 | Outpatient (BNVA) | payer OTHER, SELFPAY | PROVIDERS: Visit Provider Physician Assistant | DX: M79.642 Pain in left hand (principal); M24.542 Contracture, left hand; S69.92XA Unspecified injury of left wrist, hand and finger(s), initial encounter; W19.XXXA Unspecified fall, initial encounter | CPT/HCPCS: 73130 ==

== ENCOUNTER 2024-12-03 10:48 | Outpatient (CLI) | payer OTHER, SELFPAY | END 2024-12-03 10:49 | disposition home or self-care (01) | LOC: SOT 10:50 | PROVIDERS: Visit Provider Orthopaedic Surgery | DX: Z46.89 Encounter for fitting and adjustment of other specified devices (principal); M24.542 Contracture, left hand | CPT/HCPCS: 97760; L3919 ==

== ENCOUNTER 2024-12-08 14:02 | Outpatient (RCR) | payer OTHER, SELFPAY | END 2024-12-25 23:59 | disposition home or self-care (01) | LOC: SOT 14:02 | PROVIDERS: Visit Provider Orthopaedic Surgery | DX: M25.542 Pain in joints of left hand (principal) | CPT/HCPCS: 97022; 97110; 97140; 97165; 97530 ==

== ENCOUNTER 2024-12-26 05:00 | Outpatient (RCR) | payer OTHER, SELFPAY | END 2025-01-24 23:59 | disposition home or self-care (01) | LOC: SOT 05:00 | PROVIDERS: Visit Provider Orthopaedic Surgery | DX: M25.542 Pain in joints of left hand (principal) | CPT/HCPCS: 97022; 97110; 97140 ==